=== PATIENT | male | born 1960 | race Caucasian/White ===

== ENCOUNTER 2016-04-21 09:58 | Emergency (ER) | payer BC, OTHER ==
[2016-04-21 10:09] VITALS: BP 136/75; PULSE 66; TEMP 97.8; BMI 27.8
--- NOTE | 2016-04-21 12:26 | PDOC ---
History of Present Illness - General Chief Complaint: Pain Stated Complaint: LT SHOULDER/HAND PAIN Time Seen by Provider: 04/21/16 10:49 History Source: Patient Exam Limitations: No Limitations - History of Present Illness Initial Comments: 04/21/16 12:22 cc left shoulder pain post lifting heavy object at work x 1 day Occurred: reports: yesterday Severity: reports: moderate Pain Location: reports: upper extremity Method of Injury: Yes: other (heavy lift) Past History - Past Medical History Allergies/Adverse Reactions: Allergies Allergy/AdvReac Type Severity Reaction Status Date / Time No Known Allergies Allergy Verified 04/21/16 10:04 Home Medications: Ambulatory Orders Clopidogrel Bisulfate [Plavix -] 75 mg PO DAILY 12/19/11 Folic Acid - 1 mg PO DAILY 12/19/11 Metoprolol Succinate [Toprol XL -] 25 mg PO DAILY 12/19/11 Rosuvastatin Calcium [Crestor] 5 mg PO DAILY 12/19/11 Cardiac Disorders: Yes (cad) Diabetes: No HTN: Yes Hypercholesterolemia: Yes - Surgical History Cardiac Surgery: Yes (TRIPLE BYPASS: 2000) - Immunization History Immunization Up to Date: No - Psycho/Social/Smoking Cessation Hx Anxiety: No Suicidal Ideation: No Smoking Status: No Smoking History: Current every day smoker Have you smoked in the past 12 months: Yes Number of Cigarettes Smoked Daily: 2 Information on smoking cessation initiated: Yes 'Breaking Loose' booklet given: 04/21/16 Hx Alcohol Use: No Drug/Substance Use Hx: No Substance Use Type: None Review of Systems - Review of Systems Constitutional: No: Symptoms Reported HEENTM: No: Symptoms Reported Respiratory: No: Symptoms reported, Cough Cardiac (ROS): No: Symptoms Reported ABD/GI: No: Symptoms Reported : No: Symptoms Reported Musculoskeletal: No: Symptoms Reported Integumentary: No: Symptoms Reported Neurological: No: Numbness, Paresthesia, Tingling, Other *Physical Exam - Vital Signs Last Vital Signs Temp Pulse Resp BP Pulse Ox 97.8 F 66 18 136/75 100 04/21/16 10:04 04/21/16 10:04 04/21/16 10:04 04/21/16 10:04 04/21/16 10:04 - Physical Exam General Appearance: Yes: Appropriately Dressed. No: Apparent Distress HEENT: positive: TMs Normal, Pharynx Normal Neck: positive: Supple. negative: Tender, Rigid, Rigidity Respiratory/Chest: positive: Lungs Clear Cardiovascular: positive: Regular Rhythm, Regular Rate. negative: Murmur Gastrointestinal/Abdominal: positive: Tender, Soft. negative: Normal Bowel Sounds Rectal Exam: positive: heme negative stool ED Treatment Course - RADIOLOGY Radiology Studies Ordered: Category Date Time Status SHOULDER-W/TRANS-LEFT [RAD] Stat Radiology 04/21/16 11:12 Completed Medical Decision Making - Medical Decision Making 04/21/16 12:24 xray notes notes AC joint DJD also calcified tendonitis *DC/Admit/Observation/Transfer Diagnosis at time of Disposition: Strain of left shoulder Qualifiers: Encounter type: initial encounter Qualified Code(s): S46.912A - Strain of unspecified muscle, fascia and tendon at shoulder and upper arm level, left arm , initial encounter - Discharge Dispostion Disposition: HOME Condition at time of disposition: Stable Admit: No - Referrals Referrals: French Cohn MD [Primary Care Provider] - Hector Alanis MD [Staff Physician] -
== END 2016-04-21 12:27 | disposition home or self-care (01) ==
LOC: JERFT 09:58
DX: S46.912A Strain of unspecified muscle, fascia and tendon at shoulder and upper arm level, left arm, initial encounter (principal); X58.XXXA Exposure to other specified factors, initial encounter; Y93.89 Activity, other specified; Y92.9 Unspecified place or not applicable; Y99.0 Civilian activity done for income or pay; I10 Essential (primary) hypertension; E11.9 Type 2 diabetes mellitus without complications; E78.00 Pure hypercholesterolemia, unspecified; I25.10 Atherosclerotic heart disease of native coronary artery without angina pectoris; F17.210 Nicotine dependence, cigarettes, uncomplicated
CPT/HCPCS: 73030-TC-LT; 99281-25

== ENCOUNTER 2016-09-11 10:10 | Emergency (ER) | payer OTHER ==
[2016-09-11 10:15] VITALS: BP 134/80; PULSE 69; TEMP 98.2; BMI 26.9
[2016-09-11] MEDS ORDERED: KETOROLAC TROMETHAMINE 60 MG/2 ML VIAL IM ONE (11:28)
[2016-09-11] MEDS ORDERED: KETOROLAC TROMETHAMINE 60 MG/2 ML VIAL ONE (11:29)
--- NOTE | 2016-09-11 11:48 | PDOC ---
History of Present Illness - General Chief Complaint: Injury Stated Complaint: KNEE PAIN Time Seen by Provider: 09/11/16 11:14 - History of Present Illness Initial Comments: 09/11/16 11:27 CHIEF COMPLAINT: R knee pain HISTORY OF PRESENT ILLNESS: 55 yo M with hx of CAD (s/o triple bypass 2000 on Plavix), HTN, HLD, and chronic shoulder pain presents to fast track with pain to R knee s/p fall this morning. 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 No recent travel or sick contacts. PAST MEDICAL HISTORY: Denies past medical history FAMILY HISTORY: Denies SOCIAL HISTORY: Daily smoker, one pack daily. Denies alcohol, illicit drug use. SURGICAL HISTORY: triple bypass ALLERGIES: No known drug allergies REVIEW OF SYSTEMS General/Constitutional: Denies fever or chills. Denies weakness, weight change. HEENT: Denies change in vision. Denies ear pain or discharge. Denies sore throat. Cardiovascular: Denies chest pain or shortness of breath. Respiratory: Denies cough, wheezing, or hemoptysis. Gastrointestinal: Denies nausea, vomiting, diarrhea or constipation. Denies rectal bleeding. Genitourinary: Denies dysuria, frequency, or change in urination. Musculoskeletal: R knee pain, chronic R shoulder pain. Denies neck or back pain. Skin and breasts: Denies rash or easy bruising. Neurologic: Denies headache, vertigo, loss of consciousness, or loss of sensation. PHYSICAL EXAM General Appearance: Well-appearing, appropriately dressed. No apparent distress , no intoxication. HEENT: EOMI, PERRLA. Neck: Supple. Trachea midline. No tenderness, rigidity, carotid bruit, stridor , lymphadenopathy, or thyromegaly. Respiratory/Chest: Lungs CTAB. Cardiovascular: RRR. S1, S2. Gastrointestinal/Abdominal: Normal bowel sounds. Abdomen soft, non-distended. No tenderness or rebound tenderness. No organomegaly, pulsatile mass, guarding , hernia, hepatomegaly, splenomegaly. Lymphatic: No adenopathy, tenderness. Musculoskeletal/Extremities: TTP to medial aspect of R knee. Full ROM to R knee, weight bearing. FROM of all other extremities, normal capillary refill. Pelvis Stable. No CVA tenderness. Integumentary: Appropriate color, dry, warm. No cyanosis, erythema, jaundice or rash Neurologic: printer small print shop II-XII intact. Fully oriented, alert. Appropriate mood/affect. Motor strength 5/5. No appreciable EOM palsy, facial droop or sensory deficit. Past History - Past Medical History Allergies/Adverse Reactions: Allergies Allergy/AdvReac Type Severity Reaction Status Date / Time No Known Allergies Allergy Verified 09/11/16 10:12 Home Medications: Ambulatory Orders Clopidogrel Bisulfate [Plavix -] 75 mg PO DAILY 12/19/11 Folic Acid - 1 mg PO DAILY 12/19/11 Metoprolol Succinate [Toprol XL -] 25 mg PO DAILY 12/19/11 Rosuvastatin Calcium [Crestor] 5 mg PO DAILY 12/19/11 Cardiac Disorders: Yes (cad) Diabetes: No HTN: Yes Hypercholesterolemia: Yes - Surgical History Cardiac Surgery: Yes (TRIPLE BYPASS: 1999) - Immunization History Immunization Up to Date: No - Psycho/Social/Smoking Cessation Hx Anxiety: No Suicidal Ideation: No Smoking Status: No Smoking History: Current every day smoker Have you smoked in the past 12 months: Yes Number of Cigarettes Smoked Daily: 20 Information on smoking cessation initiated: Yes 'Breaking Loose' booklet given: 09/11/16 Hx Alcohol Use: No Drug/Substance Use Hx: No Substance Use Type: None *Physical Exam - Vital Signs Last Vital Signs Temp Pulse Resp BP Pulse Ox 98.2 F 69 18 134/80 100 09/11/16 10:13 09/11/16 10:13 09/11/16 10:13 09/11/16 10:13 09/11/16 10:13 Medical Decision Making - Medical Decision Making 09/11/16 11:56 55 yo M with hx of CAD (s/o triple bypass 1999 on Plavix), HTN, HLD, and chronic shoulder pain presents to fast track with pain to R knee s/p fall this morning. -R knee x-ray -Toradol 60 mg IM 09/11/16 12:29 X-ray wet read negative for fracture. Patient reassessed, states he "feels fine " now. Philippe wrap, knee immobilizer. Advised patient to continue taking the Percocet he takes for his chronic shoulder pain to alleviate knee pain. Advised patient to apply RICE therapy and of signs and symptoms for return to ER. Patient verbalized understanding and agrees to plan. *DC/Admit/Observation/Transfer Diagnosis at time of Disposition: Right medial knee pain - Discharge Dispostion Disposition: HOME Condition at time of disposition: Stable Admit: No - Referrals Referrals: French Cohn MD [Primary Care Provider] - Hector Alanis MD [Staff Physician] - - Patient Instructions Printed Discharge Instructions: DI for Knee Pain Additional Instructions: Please continue to take your Percocet to help relieve the pain in your shoulder and your knees. Follow up with orthopedics within the next 2-3 days for a possible MRI or physical therapy for your knee. If you are unable to bear weight on your knee, experience any loss of sensation to your leg, or you develop any new or worsening symptoms, please return to the ER. - Post Discharge Activity Work/School Note: Back to Work
== END 2016-09-11 12:33 | disposition home or self-care (01) ==
LOC: JERFT 10:10
PROC: 2W3LX1Z Immobilization of Right Lower Extremity using Splint (ICD-10-PCS; principal; 2016-09-11)
DX: M25.561 Pain in right knee (principal); W10.1XXA Fall (on)(from) sidewalk curb, initial encounter; Y93.89 Activity, other specified; Y92.480 Sidewalk as the place of occurrence of the external cause; Y99.0 Civilian activity done for income or pay; I25.10 Atherosclerotic heart disease of native coronary artery without angina pectoris; I10 Essential (primary) hypertension; Z95.1 Presence of aortocoronary bypass graft; E78.00 Pure hypercholesterolemia, unspecified
CPT/HCPCS: 73562-TC-RT; 99281-25

== ENCOUNTER 2017-05-04 10:12 | Emergency (ER) | payer OTHER ==
[2017-05-04 10:27] VITALS: BP 133/92; PULSE 67; TEMP 99.2; BMI 27.1
--- NOTE | 2017-05-04 11:23 | PDOC ---
History of Present Illness - General Chief Complaint: Back Pain Stated Complaint: BACK PAIN, NUMBNESS TO LEGS Time Seen by Provider: 05/04/17 11:21 History Source: Patient Exam Limitations: No Limitations - History of Present Illness Initial Comments: CHIEF COMPLAINT: 56 y/o male with PMH HTN, HLD, CAD with bypass 20 years ago ( on Plavix) c/o back pain and right big toe pain. HISTORY OF PRESENT ILLNESS: The patient states his toes are always tingling ( for the past 10 years) but he deals with it. He admits yesterday at work he was lifting large pieces of wood (2" x 8" by 10 feet long) and he felt tightness in his back. Last night he started having a lot of pain in the big toe of his right foot. He also admits to weakness in his legs and states he has to keep stretching them. He denies f/c, fall onto back, hemoptysis, CP, SOB , dizziness, calf pain, saddle anesthesia, bowel/bladder incontinence. He has had an MRI of his lumbar spine and venous and arterial dopplers of his legs about 7 years ago - all were normal. PCP is Dr. Cohn Ship Fastener is Dr. Gan Vital signs on arrival are within normal limits. REVIEW OF SYSTEMS: GENERAL/CONSTITUTIONAL: No fever/chills. No weakness. No weight change. GENITOURINARY: No dysuria, frequency, or change in urination. MUSCULOSKELETAL: +right big toe pain. +low back pain. SKIN: No rash or easy bruising. NEUROLOGIC: No headache, vertigo, loss of consciousness, or loss of sensation. PHYSICAL EXAM: VITAL_SIGNS: within normal limits GENERAL_APPEARANCE: alert, cooperative, no obvious discomfort. The patient is well appearing and ambulatory. MENTAL_STATUS: speech clear, oriented X 3, responds appropriately to questions. BACK: No midline lumbar spine TTP or step offs. Reproducible pain with palpation of lumbar paravertebral muscles b/l. Full flexion and extension of lumbar spine. NEURO: motor intact and sensory intact in injured extremity. No saddle anesthesia. EXTREMITIES: 2+ dorsalis pedis pulse in right foot. Toes are cool to touch and distal first toe of right glory hole tender to palpation without deformity, crepitus, erythema or edema. Full ROM of affected toe. No calf TTP, erythema or edema b/ l. SKIN: warm, dry, good color. Past History - Past Medical History Allergies/Adverse Reactions: Allergies Allergy/AdvReac Type Severity Reaction Status Date / Time No Known Allergies Allergy Verified 05/04/17 10:23 Home Medications: Ambulatory Orders Clopidogrel Bisulfate [Plavix -] 75 mg PO DAILY 12/19/11 Folic Acid - 1 mg PO DAILY 12/19/11 Metoprolol Succinate [Toprol XL -] 25 mg PO DAILY 12/19/11 Rosuvastatin Calcium [Crestor] 5 mg PO DAILY 12/19/11 Cardiac Disorders: Yes (cad) CVA: No COPD: No Diabetes: No HTN: Yes Hypercholesterolemia: Yes - Surgical History Cardiac Surgery: Yes (TRIPLE BYPASS: 1999) - Immunization History Immunization Up to Date: No - Suicide/Smoking/Psychosocial Hx Smoking Status: No Smoking History: Current every day smoker Have you smoked in the past 12 months: Yes Number of Cigarettes Smoked Daily: 10 Information on smoking cessation initiated: No 'Breaking Loose' booklet given: 09/11/16 Hx Alcohol Use: No Drug/Substance Use Hx: No Substance Use Type: None *Physical Exam - Vital Signs Last Vital Signs Temp Pulse Resp BP Pulse Ox 99.2 F 67 20 133/92 97 05/04/17 10:24 05/04/17 10:24 05/04/17 10:24 05/04/17 10:24 05/04/17 10:24 Medical Decision Making - Medical Decision Making A/P: 56 y/o male with right big toe pain and lower back pain s/p lifting heavy things yesterday. Patient has been worked up in the past for gout, DVT, decreased blood flow to extremities - all tests were normal. The patient admits he only has about 1 hour before he has to go back to work. Plan is as follows: 1. xray lumbar spine 2. toe xray Xray lumbar spine IMPRESSION: (Wet read) No acute findings Xray right toes IMPRESSION: (Wet read) No acute findings Gave the patient his results. He now informs me he was "digging" with his right foot yesterday and may have hit his big toe on something. Strongly encouraged a arterial doppler of his LEs but the patient is refusing stating he has to go back to work. STrongly encouraged him to f/u with [facility] for arterial doppler of his LEs. Will also give Neuro referral. Also suggested he continue taking his Percocet for pain and return to the ER with any worsening or concerning symptoms. The patient verbalizes understanding of all instructions, has no further questions and is awaiting discharge. *DC/Admit/Observation/Transfer Diagnosis at time of Disposition: Toe pain, right Low back pain Qualifiers: Chronicity: acute Back pain laterality: bilateral Sciatica presence: with sciatica Sciatica laterality: bilateral sciatica Qualified Code(s): M54.42 - Lumbago with sciatica, left side - Discharge Dispostion Disposition: HOME Condition at time of disposition: Good - Referrals Referrals: French Cohn MD [Primary Care Provider] - Call tomorrow Neymar Gan MD [Staff Physician] - Garrett Abreu DO [Staff Physician] - - Patient Instructions Printed Discharge Instructions: DI for Back Pain With Sciatica Additional Instructions: Discharge Instructions: -Continue taking your percocet for pain -Please follow up with your regular doctors for possible arterial doppler of your lower extremities -Follow up with Dr. Abreu regarding the tingling in your toes -Return to the ER immediately with any worsening or concerning symptoms including, but not limited to, bowel or bladder incontinence, inability to stand or walk. - Post Discharge Activity Forms/Work/School Notes: Back to Work
== END 2017-05-04 12:15 | disposition home or self-care (01) ==
LOC: JERFT 10:12
DX: M79.674 Pain in right toe(s) (principal); M54.42 Lumbago with sciatica, left side
CPT/HCPCS: 72100-TC; 73660-TC; 99281-25

== ENCOUNTER 2018-11-13 08:12 | Emergency (ER) | payer OTHER ==
[2018-11-13 08:17] VITALS: BP 163/91; PULSE 68; TEMP 98.3; BMI 28.5
[2018-11-13] MEDS ORDERED: KETOROLAC TROMETHAMINE 60 MG/2 ML VIAL IM ONE (08:46)
--- NOTE | 2018-11-13 08:59 | PDOC ---
History of Present Illness - General Chief Complaint: Chronic pain Stated Complaint: RT. SHOULDER PAIN Time Seen by Provider: 11/13/18 08:37 History Source: Patient Exam Limitations: No Limitations - History of Present Illness Initial Comments: 11/13/18 08:28 57-year-old male with history of chronic right shoulder pain secondary to a labral/rotator cuff tear requiring surgery presents to ED with worsening pain since yesterday after using a jackhammer at work and lifting heavy items with his arms. 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 Patient denies numbness or tingling to the fingers, radiation of pain, swelling to the area or any skin discoloration Occurred: reports: yesterday Severity: reports: mild, moderate Upper Extremity Pain Location: right: shoulder Method of Injury: reports: other Modifying Factors: improves with: None Extremity Pain Location - Extremity Pain Location Extremity Pain Locations: right: arm Past History - Travel Traveled outside of the country in the last 30 days: No Close contact w/someone who was outside of country & ill: No - Past Medical History Allergies/Adverse Reactions: Allergies Allergy/AdvReac Type Severity Reaction Status Date / Time No Known Allergies Allergy Verified 11/13/18 08:17 Home Medications: Ambulatory Orders Clopidogrel Bisulfate [Plavix -] 75 mg PO DAILY 12/19/11 Folic Acid - 1 mg PO DAILY 12/19/11 Metoprolol Succinate [Toprol XL -] 25 mg PO DAILY 12/19/11 Rosuvastatin Calcium [Crestor] 5 mg PO DAILY 12/19/11 Cardiac Disorders: Yes (cad) CVA: No COPD: No Diabetes: No HTN: Yes Hypercholesterolemia: Yes - Surgical History Cardiac Surgery: Yes (TRIPLE BYPASS: 2000) - Immunization History Immunization Up to Date: No - Suicide/Smoking/Psychosocial Hx Smoking Status: No Smoking History: Current every day smoker Have you smoked in the past 12 months: Yes Number of Cigarettes Smoked Daily: 20 Information on smoking cessation initiated: No 'Breaking Loose' booklet given: 09/11/16 Hx Alcohol Use: No Drug/Substance Use Hx: No Substance Use Type: None Patient Lives Alone: No Lives with/in: spouse/SO Review of Systems - Review of Systems Able to Perform ROS?: Yes Constitutional: No: Symptoms Reported Respiratory: No: Symptoms reported Cardiac (ROS): No: Symptoms Reported Musculoskeletal: Yes: Joint Pain, Muscle Pain Integumentary: No: Symptoms Reported Neurological: No: Numbness, Tingling, Weakness Hematologic/Lymphatic: No: Symptoms Reported *Physical Exam - Vital Signs Last Vital Signs Temp Pulse Resp BP Pulse Ox 98.3 F 68 16 163/91 97 11/13/18 08:15 11/13/18 08:15 11/13/18 08:15 11/13/18 08:15 11/13/18 08:15 - Physical Exam General Appearance: Yes: Nourished, Appropriately Dressed. No: Apparent Distress Comments:: 11/13/18 08:59 Right 2+ radial Extremity: positive: Normal Capillary Refill, Normal Inspection, Tender ( generalized over right shoulder/ac joint). negative: Normal Range of Motion ( unable to perform rt arm lateral raise greater than 30 or front raise greater than 40) Integumentary: positive: Normal Color, Warm, Moist Neurologic: positive: Motor Strength 5/5 (ambulatory, right hand grasp 5+) Medical Decision Making - Medical Decision Making 11/13/18 09:00 Chief complaint: Right shoulder pain aggravated while at work patient requires rotator cuff repair and followed by an orthopedic surgeon in [place] Exam patient with limited range of motion with lateral infarct raise and tenderness generally over the right shoulder joint Plan: patient has Percocet at home but requestioning injection. Patient be given an injection of Toradol and discharged home to follow up with orthopedist. *DC/Admit/Observation/Transfer Diagnosis at time of Disposition: Right shoulder pain - Discharge Dispostion Disposition: HOME Condition at time of disposition: Good - Referrals Referrals: French Cohn MD [Primary Care Provider] - - Patient Instructions Printed Discharge Instructions: DI for Shoulder Pain Additional Instructions: Please follow-up with orthopedic surgeon apply ice to the affected area and avoid movements that trigger discomfort. May take NSAID such as Motrin or Tylenol or even the Percocet which you have at home - Post Discharge Activity
[2018-11-13] MEDS ORDERED: KETOROLAC TROMETHAMINE 60 MG/2 ML VIAL ONE (09:01)
== END 2018-11-13 09:13 | disposition home or self-care (01) ==
LOC: JERFT 08:12
PROC: 3E0233Z Introduction of Anti-inflammatory into Muscle, Percutaneous Approach (ICD-10-PCS; principal; 2018-11-13)
DX: M25.511 Pain in right shoulder (principal); W31.0XXA Contact with mining and earth-drilling machinery, initial encounter; Y93.89 Activity, other specified; Y92.69 Other specified industrial and construction area as the place of occurrence of the external cause; Y99.0 Civilian activity done for income or pay
CPT/HCPCS: 99282-25